=== PATIENT | female | born 1975 | race Two or more races ===

== ENCOUNTER → 2016-11-16 | Outpatient (CLI) | payer OTHER ==
--- NOTE | ~2016-11-16 | CR63 ---
[facility] A Service of [facility] RADIOLOGY TEXT RESULTS PATIENT: KATHERIN ALAS LOCATION: [facility] : 75 UNIT #: [id number] AGE: [address]: MONI RAMIREZ APRN SEX: F ORDER DR: [id number] [facility] [address] [place], [place] [address] [id number] O MR#: [id number] Acc #: [id number] NAME: KATHERIN ALAS : 1975 SEX: F STUDY DATE/TIME: 11/16/2016 11:44 UNIT: [facility] ROOM: STUDY DESCRIPTION: CR Chest 2 View Attending Physician: Yanet Ramirez M.D. Referring Physician: Mg Cárdenas M.D. Ordering Physician: Yanet Ramirez M.D. Primary Care Physician: Sage oMntanez M.D. MEDICAL IMAGING REPORT This report is preliminary unless electronic signature is present EXAM PA and lateral chest dated 11/16/2016 COMPARISONS None. HISTORY SUPPLIED Shortness of breath for 3 months. FINDINGS PA and lateral views are obtained. The cardiovascular configuration is normal and the lungs are clear. CONCLUSION Normal chest. Dictated by... Alex Benitez M.D. THIS IS AN ELECTRONICALLY VERIFIED REPORT Alex Benitez M.D. at 11/16/2016 5:03 PM MARLA/calos TD: 11/16/2016 16:15 JOB #: [id number] MEDICAL IMAGING REPORT COPY
== END | disposition home or self-care (01) ==
LOC: CRAD 11:24
DX: R06.02 Shortness of breath (principal)
CPT/HCPCS: 71020

== ENCOUNTER → 2017-04-04 | Outpatient (CLI) | payer OTHER ==
--- NOTE | ~2017-04-04 | MY29 ---
[facility] A Service of [facility] RADIOLOGY TEXT RESULTS PATIENT: KATHERIN ALAS LOCATION: [facility] : 75 UNIT #: [id number] AGE: [address]: Lois Grajeda MD SEX: F ORDER DR: [id number] [facility] [address] [place], [place] [address] [id number] O MR#: [id number] Acc #: [id number] NAME: KATHERIN ALAS : 1975 SEX: F STUDY DATE/TIME: 04/04/2017 10:03 UNIT: [facility] ROOM: STUDY DESCRIPTION: [facility] SCREENING W/ CAD BILAT Attending Physician: Lois Grajeda M.D. Ordering Physician: Lois Grajeda M.D. Primary Care Physician: Lois Grajeda M.D. MEDICAL IMAGING REPORT This report is preliminary unless electronic signature is present EXAM Digital screening mammogram with CAD. INDICATIONS Routine screening. PROCEDURE Bilateral CC and MLO views obtained on a digital mammography unit and FDA-approved CAD device was utilized. COMPARISON 12/23/2015. FINDINGS Scattered fibroglandular density. No dominant mass or suspicious calcification. IMPRESSION Negative screening mammogram, screen interval in 1 years suggested. Patients over the age of 40 are entered into a reminder system with target due date for the next mammogram. A result letter will be sent to the patient. BIRADS: 1 Negative. Dictated by... Sony Rivera M.D. THIS IS AN ELECTRONICALLY VERIFIED REPORT Sony Rivera M.D. at 04/04/2017 5:00 PM EED/surinder [facility] A Service [facility] RADIOLOGY TEXT RESULTS PATIENT: KATHERIN ALAS LOCATION: [facility] : 75 UNIT #: [id number] AGE: [address]: Lois Grajeda MD SEX: F ORDER DR: TD: 04/04/2017 16:21 JOB #: [id number] MEDICAL IMAGING REPORT Page 1 of 1 COPY
== END | disposition home or self-care (01) ==
LOC: CWCC 09:30
DX: Z12.31 Encounter for screening mammogram for malignant neoplasm of breast (principal)
CPT/HCPCS: G0202

== ENCOUNTER → 2017-05-03 | Outpatient (CLI) | payer OTHER ==
--- NOTE | ~2017-05-03 | CT77 ---
[facility] A Service of [facility] RADIOLOGY TEXT RESULTS PATIENT: KATHERIN ALAS LOCATION: [facility] : 75 UNIT #: [id number] AGE: [address]: Booker Glover MD SEX: F ORDER DR: [id number] [facility] [address] [place], [place] [address] [id number] O MR#: [id number] Acc #: [id number] NAME: KATHERIN ALAS : 1975 SEX: F STUDY DATE/TIME: 05/03/2017 13:50 UNIT: [facility] ROOM: STUDY DESCRIPTION: CT IAC, Sella, Temporal Bone W Attending Physician: Booker Glover M.D. Referring Physician: Booker Glover M.D. Ordering Physician: Booker Glover M.D. Primary Care Physician: Lois Grajeda M.D. MEDICAL IMAGING REPORT This report is preliminary unless electronic signature is present EXAM Temporal bones CT no contrast 05/03/2017 TECHNIQUE Axial unenhanced temporal bones CT with multiplanar reformats. This CT exam was performed with one or more of the following radiation dose reduction techniques: automatic exposure control, adjustment of mA and/or kV according to patient size, and iterative reconstruction. COMPARISON None. HISTORY Bilateral conductive hearing loss 10 years, worsening over the past 2 years. FINDINGS The soft tissue structures are normal. The middle ear and mastoids and ossicles are normal bilaterally, as are the carotid and jugular facial canals and foramen spinosum. There is no carotid or jugular or labyrinthine or facial nerve dehiscence on either side. Bilaterally, perhaps slightly greater on the left and right is demineralization at the fistula anti-fenestra, typical of otosclerosis. There is no labyrinthine mineralization. The exam is otherwise unremarkable. IMPRESSION Bilateral findings of otosclerosis, perhaps left slightly greater than right but otherwise normal bilateral temporal bones CT. 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 Dictated by... Gaston Deluna M.D. THIS IS AN ELECTRONICALLY VERIFIED REPORT Gaston Deluna M.D. at 05/05/2017 4:06 PM TEV/pcl TD: 05/03/2017 16:22 JOB #: [id number] MEDICAL IMAGING REPORT Page 1 of 1 COPY
== END | disposition home or self-care (01) ==
LOC: CCAT 13:17
DX: H90.0 Conductive hearing loss, bilateral (principal); H80.83 Other otosclerosis, bilateral
CPT/HCPCS: 70480